=== PATIENT | female | born 1995 | race Caucasian/White ===

== ENCOUNTER 2023-09-16 03:56 | Inpatient (IN) | payer OTHER ==
[2023-09-16] MEDS ORDERED: CARBOPROST TROMETHAMINE 250 MCG/ML 1 ML AMP IM PRN (05:52)
[2023-09-16] MEDS ORDERED: miSOPROStoL 200 MCG TAB PO PRN (05:52)
[2023-09-16] MEDS ORDERED: OXYTOCIN 10 UNIT/ML 1 ML VIAL IM PRN (05:52)
[2023-09-16] MEDS ORDERED: TRANEXAMIC 1,000 MG/100ML-NACL 1,000 MG in EMPTY BAG 1 BAG IV PRN (05:52)
[2023-09-16] MEDS ORDERED: TERBUTALINE 1 MG/ML VIAL SQ PRN (05:52)
[2023-09-16] MEDS ORDERED: LIDOCAINE 0.5% (PF) 5 MG/ML (50 ML SDV) SQ PRN (05:52)
[2023-09-16] MEDS ORDERED: METHYLERGONOVINE 0.2 MG/ML 1 ML AMP IM PRN (05:52)
[2023-09-16] MEDS: LACTATED RINGERS 1,000 ML IV SCH ×2 (06:00→06:47)
[2023-09-16 06:22] LABS: Basophils % (A) 0 %; Eosinophils % (A) 0 %; HCT 35.1 % (34.0-46.0); HGB 11.8 gm/dL (11.4-16.0); Lymphocytes # (A) 1.8 k/uL (1.0-4.8); Lymphocytes % (A) 11 %; MCH 30.3 pg (25.0-35.0); MCHC 33.8 g/dL (31.0-37.0); MCV 89.6 fL (80.0-100.0); Mean Platelet Volume 7.6; Monocytes # (A) 0.7 k/uL (0-1.0); Monocytes % (A) 4 %; Neutrophils # (A) 13.4 k/uL (1.3-7.7); Neutrophils % (A) 84 %; Platelet Count 294 k/uL (150-450); RBC 3.91 m/uL (3.80-5.40); RDW 12.9 % (11.5-15.5)
--- NOTE | 2023-09-16 08:31 | P.HPOB ---
History of Present Illness H&P Date: 09/16/23 Chief Complaint: IUP @ 39 1/7 weeks, active labor 28-year-old at 39 and one sevenths weeks that presents to labor and delivery with complaints of regular painful contractions. Patient states contractions began early this morning and she presented to labor and delivery. Patient was deemed to be in active labor therefore was admitted. Patient is been receiving routine care which has been essentially uncomplicated. Patient denied loss of fluid upon admission. She noted good movement. On bloodwork this patient is a blood type of O-, rubella status nonimmune, surface antigen negative, HIV negative, RPR is nonreactive, group beta strep cultures are negative. Review of Systems Constitutional: Denies chills, Denies fatigue, Denies fever Ears, nose, mouth and throat: Denies headache Cardiovascular: Denies leg edema Respiratory: Denies dyspnea Gastrointestinal: Denies constipation, Denies diarrhea, Denies nausea, Denies vomiting Genitourinary: Reports Past Medical History Past Medical History: No Reported History Additional Past Medical History / Comment(s): seasonal allergies History of Any Multi-Drug Resistant Organisms: None Reported Past Surgical History: No Surgical Hx Reported Past Psychological History: No Psychological Hx Reported Smoking Status: Never smoker Past Alcohol Use History: None Reported Past Drug Use History: None Reported Medications and Allergies Home Medications Medication Instructions Recorded Confirmed Type Vit No.179/Iron/Folic 09/16/23 History [ Tablet] Allergies Allergy/AdvReac Type Severity Reaction Status Date / Time No Known Allergies Allergy Verified 09/16/23 04:00 Exam Osteopathic Statement: *. No significant issues noted on an osteopathic structural exam other than those noted in the History and Physical/Consult. 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 Patient did receive an epidural prior to my arrival. Heart has a regular rate and rhythm, abdomen is gravid, cervical exam she is 9/100/-1 station amniotomy is performed and clear fluid was obtained. heart tones returned be category 1 and she is adin every 2 minutes. Results Result Diagrams: 09/16/23 06:10 Abnormal Lab Results - Last 24 Hours (Table) 09/16/23 Range/Units 06:10 WBC 16.0 H (3.8-10.6) k/uL Neutrophils # 13.4 H (1.3-7.7) k/uL Assessment and Plan (1) Term Current Visit: Yes Status: Acute Code(s): Z34.90 - ENCNTR FOR SUPRVSN OF NORMAL , UNSP, UNSP TRIMESTER SNOMED Code(s): 39697123 (2) Active labor Current Visit: Yes Status: Acute Code(s): TFO5851 - SNOMED Code(s): 951846298 Plan: 28-year-old at 39 and one sevenths weeks presents in active labor. Olivier rivero did receive an epidural prior to my arrival. Anticipate spontaneous vaginal delivery.
[2023-09-16] MEDS ORDERED: BENZOCAINE/MENTHOL SPRAY 1 GM/SPRAY AEROSOL TOPICAL PRN (11:26)
[2023-09-16] MEDS ORDERED: diphenhydrAMINE 25 MG CAP PO PRN (11:26)
[2023-09-16] MEDS ORDERED: diphenhydrAMINE 50 MG CAP PO PRN (11:26)
[2023-09-16] MEDS ORDERED: SIMETHICONE 80 MG CHEWABLE PO PRN (11:26)
[2023-09-16] MEDS ORDERED: LANOLIN CREAM 5 GM TUBE TOPICAL PRN (11:26)
[2023-09-16] MEDS ORDERED: diphenhydrAMINE 50 MG/ML 1 ML VIAL IVP PRN ×2 (11:26)
[2023-09-16] MEDS ORDERED: HYDROCORTISONE 2.5% RECTAL CREAM 30 GM TUBE RECTAL PRN (11:26)
[2023-09-16] MEDS ORDERED: MEASLES-MUMPS-RUBELLA VACC/PF 12,500 UNIT/0.5 ML VIAL SQ ONE (11:26)
[2023-09-16] MEDS ORDERED: ZOLPIDEM 5 MG TAB PO PRN (11:26)
--- NOTE | 2023-09-16 11:31 | P.PROBDLV ---
Vaginal Delivery Note - . Vaginal Delivery Note: This is a 28-year-old 3 para 1011 at 39 and one sevenths weeks that presented to labor and delivery early this morning with complaints of regular painful contractions. Patient was deemed to be in active labor therefore she was admitted to labor and delivery. Patient did request epidural which was placed by the anesthesia Department without difficulty. Patient made good progress toward complete. Patient underwent amniotomy and copious clear fluid was obtained. Patient progressed to complete began pushing. With excellent maternal effort patient had a normal spontaneous vaginal delivery of a viable female infant at 1042, weight of 6 lbs. 11 oz., compound right hand was appreciated. Occiput anterior presentation was noted on delivery. After two- minute delayed the umbilical cord was doubly clamped and cut, and the placenta was delivered spontaneously intact with a three-vessel cord. Uterus is noted be firm and below the umbilicus. On inspection the patient's vaginal vault a midline second-degree laceration with bilateral stellate tears was appreciated. This was repaired in the usual fashion with 3-0 Rapide in a running locked fashion. Areas were instilled with lidocaine prior to closure. Small amount of oozing was noted at the apex of the right stellate tear therefore Surgicel powder was placed along this area for hemostasis. The bladder was drained for partially 200 mL of clear yellow urine after delivery the placenta. After pl acement of Surgicel powder the laceration sites were noted to be hemostatic. All counts were noted be correct 2 at the end of the delivery. Patient and infant tolerated delivery well and are resting comfortably.
[2023-09-16] MEDS: IBUPROFEN 600 MG TAB PO SCH ×2 (13:48→20:49)
[2023-09-16] MEDS: ACETAMINOPHEN TAB 325 MG TAB PO PRN ×2 (18:37→23:23)
[2023-09-16] MEDS: SENNOSIDES-DOCUSATE SODIUM 1 EACH TAB PO SCH (20:49)
[2023-09-16 21:24] VITALS: RESP 16
[2023-09-17 01:29] VITALS: TEMP 97.8
[2023-09-17] MEDS: IBUPROFEN 600 MG TAB PO SCH ×2 (06:36→07:46)
[2023-09-17] MEDS: SENNOSIDES-DOCUSATE SODIUM 1 EACH TAB PO SCH (08:47)
[2023-09-17 08:57] VITALS: BP 99/68; PULSE 71
[2023-09-17] MEDS: ACETAMINOPHEN TAB 325 MG TAB PO PRN (10:03)
--- NOTE | 2023-09-17 10:41 | P.DS ---
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 Patient had been receiving routine care which has been essentially uncomplicated. Patient was admitted to labor and delivery and progressed through labor. Patient did become uncomfortable and requested epidural placement. Epidural was placed without difficulty by the anesthesia department. Patient made progress toward complete amniotomy was performed and clear fluid was obtained. Patient began pushing and with excellent maternal effort had a normal spontaneous vaginal delivery of a viable female at 1042, weight of 6 lbs. 11 oz., Apgars of 9 and 9 at one and 5 minutes respectively. Patient did sustain a second-degree midline laceration with sulcal tears appreciated. This was repaired in usual fashion with 3-0 Rapide. Patient's post course has been uneventful. On this day #1 she is in bleeding and voiding without difficulty. She is tolerating regular diet without nausea or vomiting. She is breast-feeding without difficulty. She states she would like discharge home at 24 hours if possible. Patient Condition at Discharge: Good Plan - Discharge Summary New Discharge Prescriptions: No Action Vit No.179/Iron/Folic [ Tablet] Discharge Medication List Vit No.179/Iron/Folic [ Tablet] 09/16/23 [History] Follow up Appointment(s)/Referral(s): Zoraida Man DO [Doctor of Osteopathic Medicine] - 6 Weeks Patient Instructions/Handouts: Vaginal Delivery (GEN), Vaginal Delivery (DC) Activity/Diet/Wound Care/Special Instructions: No tub baths or intercourse until 6 weeks , [id number] ibuprofen as needed for pain. Patient is to call the office today for routine visit in 6 weeks. Should she have any concerns prior to this appointment she is urged to call the office. Discharge Disposition: HOME SELF-CARE
== END 2023-09-17 11:41 | disposition home or self-care (01) | DRG 807 ==
LOC: FBPOP 03:56 → 4FBP 06:05
PROVIDERS: ADMIT Obstetrics & Gynecology; ATTEND Obstetrics & Gynecology Obstetrics
PROC: 0KQM0ZZ Repair Perineum Muscle, Open Approach (ICD-10-PCS; principal; 2023-09-16)
PROC: 10E0XZZ Delivery of Products of Conception, External Approach (ICD-10-PCS; 2023-09-16)
PROC: 10907ZC Drainage of Amniotic Fluid, Therapeutic from Products of Conception, Via Natural or Artificial Opening (ICD-10-PCS; 2023-09-16)
DX: O32.6XX0 Maternal care for compound presentation, not applicable or unspecified (principal); Z37.0 Single live birth; O70.1 Second degree perineal laceration during delivery; Z3A.39 39 weeks gestation of pregnancy
CPT/HCPCS: 59025; 85025; 86850; 86870; 86880; 86900; 86901; 90471; 90707; 99213

== ENCOUNTER 2025-01-28 06:12 | Inpatient (IN) | payer MEDICAID, OTHER ==
[2025-01-28] MEDS ORDERED: miSOPROStoL 200 MCG TAB RECTAL PRN (06:39)
[2025-01-28] MEDS ORDERED: TERBUTALINE 1 MG/ML VIAL SQ PRN (06:39)
[2025-01-28] MEDS ORDERED: TRANEXAMIC 1,000 MG/100ML-NACL 1,000 MG in EMPTY BAG 1 BAG IV PRN (06:39)
[2025-01-28] MEDS ORDERED: OXYTOCIN 10 UNIT/ML 1 ML VIAL IM PRN (06:39)
[2025-01-28] MEDS ORDERED: METHYLERGONOVINE 0.2 MG/ML 1 ML AMP IM PRN (06:39)
[2025-01-28] MEDS ORDERED: miSOPROStoL 200 MCG TAB PO PRN (06:39)
[2025-01-28] MEDS ORDERED: CARBOPROST TROMETHAMINE 250 MCG/ML 1 ML AMP IM PRN (06:39)
[2025-01-28] MEDS: LACTATED RINGERS 1,000 ML IV SCH (06:53)
[2025-01-28 07:01] LABS: Basophils # (A) 0.03 10*3/uL (0.00-0.10); Basophils % (A) 0.3 %; Eosinophils # (A) 0.06 10*3/uL (0.04-0.35); Eosinophils % (A) 0.5 %; HCT 35.8 % (37.2-46.3); HGB 11.4 g/dL (12.0-15.0); Lymphocytes # (A) 2.24 10*3/uL (0.90-5.00); Lymphocytes % (A) 20.1 %; MCH 29.1 pg (27.0-32.0); MCHC 31.8 g/dL (32.0-37.0); MCV 91.3 fL (80.0-97.0); Mean Platelet Volume 9.7 fL (9.5-12.2); Monocytes # (A) 0.88 10*3/uL (0.20-1.00); Monocytes % (A) 7.9 %; Neutrophils # (A) 7.86 10*3/uL (1.80-7.70); Neutrophils % (A) 70.5 %; Platelet Count 252 10*3/uL (140-440); RBC 3.92 10*6/uL (4.10-5.20); RDW 13.2 % (11.5-14.5); WBC 11.15 10*3/uL (4.50-10.00)
[2025-01-28] MEDS: OXYTOCIN 30 UNITS/500 ML NS 30 UNIT in SALINE 1 500ML.BAG IV SCH (07:30)
[2025-01-28 07:59] VITALS: RESP 16
[2025-01-28] MEDS ORDERED: fentaNYL (PF) 50 MCG/ML 5 ML AMP ONE (11:07)
[2025-01-28] MEDS ORDERED: SODIUM CHLORIDE 0.9% 250 ML BAG ONE (11:07)
[2025-01-28] MEDS ORDERED: ROPIVACAINE 5 MG/ML 30 ML VIAL ONE (11:07)
[2025-01-28] MEDS: LIDOCAINE 0.5% (PF) 5 MG/ML (50 ML SDV) SQ PRN (15:29)
[2025-01-28] MEDS ORDERED: diphenhydrAMINE 50 MG/ML 1 ML VIAL IVP PRN ×2 (15:48)
[2025-01-28] MEDS ORDERED: diphenhydrAMINE 25 MG CAP PO PRN (15:48)
[2025-01-28] MEDS ORDERED: LANOLIN CREAM 1 GM TUBE TOPICAL PRN (15:48)
[2025-01-28] MEDS ORDERED: diphenhydrAMINE 50 MG CAP PO PRN (15:48)
[2025-01-28] MEDS ORDERED: HYDROCORTISONE 2.5% RECTAL CREAM 30 GM TUBE RECTAL PRN (15:48)
[2025-01-28] MEDS ORDERED: ZOLPIDEM 5 MG TAB PO PRN (15:48)
[2025-01-28] MEDS ORDERED: SIMETHICONE 80 MG CHEWABLE PO PRN (15:48)
[2025-01-28] MEDS ORDERED: BENZOCAINE/MENTHOL SPRAY 1 GM/SPRAY AEROSOL TOPICAL PRN (15:48)
--- NOTE | 2025-01-28 16:45 | P.HPOB ---
History of Present Illness H&P Date: 01/28/25 Chief Complaint: IUP at 39-0/7 weeks, SGA This is a 29-year-old 4 para 2-0-1-2 that presents to labor and delivery for medical induction of labor secondary to SGA. Patient been receiving routine care which, was complicated by a diagnosis of small for gestational age. Patient has noted good movement and has had normal testing. Patient notes good movement denies vaginal bleeding or loss of fluid. On blood work this patient is a blood type of O-, rubella status immune, hepatitis B surface engine negative, HIV negative, RPR is nonreactive, hepatitis C nonreactive, grew beta strep culture is negative. Review of Systems Constitutional: Denies chills, Denies fatigue, Denies fever Ears, nose, mouth and throat: Denies headache Cardiovascular: Denies leg edema Respiratory: Denies dyspnea Gastrointestinal: Denies nausea, Denies vomiting Genitourinary: Reports Past Medical History Past Medical History: No Reported History Additional Past Medical History / Comment(s): seasonal allergies History of Any Multi-Drug Resistant Organisms: None Reported Past Surgical History: No Surgical Hx Reported Past Psychological History: No Psychological Hx Reported Smoking Status: Never smoker Past Alcohol Use History: None Reported Past Drug Use History: None Reported - Past Family History Mother Family Medical History: No Reported History Medications and Allergies Home Medications Medication Instructions Recorded Confirmed Type Vit No.179/Iron/Folic 1 tab PO DAILY 09/16/23 01/28/25 History [ Tablet] Allergies Allergy/AdvReac Type Severity Reaction Status Date / Time No Known Allergies Allergy Verified 09/16/23 04:00 Exam Osteopathic Statement: *. No significant issues noted on an osteopathic structural exam other than those noted in the History and Physical/Consult. Vital Signs Temp Pulse Resp BP Pulse Ox 01/28/25 16:08 76 16 101/62 01/28/25 15:45 87 16 110/56 01/28/25 15:30 93 16 99/64 01/28/25 15:15 81 16 103/66 01/28/25 15:00 88 16 98/65 01/28/25 14:45 97.9 F 84 16 97/65 100 01/28/25 07:05 97.5 F L 72 16 107/73 Intake and Output 0401/28/25 01/28/25 06:59 14:59 22:59 Output Total 600 Balance -600 Output: Urine 400 Straight 400 Output, Quantitative 200 Blood Loss Other: Weight 62.596 kg 62.596 kg Targeted physical exam is performed this date in general is a well-nourished well-developed female in no acute distress, breathing is nonlabored, heart has a regular rate and rhythm, abdomen is gravid, heart tones are noted to be category 1 and she is adin irregularly. On cervical exam she is 2/50/-3 station vertex presentation, amniotomy is performed and clear fluid was obtained. Results Result Diagrams: 01/28/25 06:50 Abnormal Lab Results - Last 24 Hours (Table) 01/28/25 Range/Units 06:50 WBC 11.15 H (4.50-10.00) 10*3/uL RBC 3.92 L (4.10-5.20) 10*6/uL Hgb 11.4 L (12.0-15.0) g/dL Hct 35.8 L (37.2-46.3) % MCHC 31.8 L (32.0-37.0) g/dL Immature Gran # 0.08 H (0.00-0.04) 10*3/uL Neutrophils # 7.86 H (1.80-7.70) 10*3/uL Assessment and Plan (1) SGA (small for gestational age), , affecting care of mother, antepartum Current Visit: Yes Status: Acute Code(s): O36.5990 - MATERN CARE FOR OTH OR SUSP POOR FETL GRTH, UNSP TRI, UNSP SNOMED Code(s): 699447385 (2) Term Current Visit: No Status: Acute Code(s): Z34.90 - ENCNTR FOR SUPRVSN OF NORMAL , UNSP, UNSP TRIMESTER SNOMED Code(s): 10646809 Plan: Admit to labor and delivery Pitocin induction of labor Epidural when appropriate Clear liquids as tolerated Anticipate spontaneous vaginal delivery
--- NOTE | 2025-01-28 16:49 | P.PROBDLV ---
Vaginal Delivery Note - . Vaginal Delivery Note: Date of service: 01/28/2025 Findings: viable female infant at 1429, vacuum assist, weight of 6 pound 0.5 ounces 29-year-old -0-1-2 at 30-0/7 weeks that presents to labor and delivery for induction of labor. Patient is admitted and Pitocin induction of labor is b egun. Patient underwent amniotomy clear fluid was obtained. Patient progressed in labor becoming uncomfortable and requesting epidural. Epidural was placed without difficulty by the anesthesia department. Patient made progress toward complete dilation. Once completely dilated patient began pushing. bradycardia was noted therefore a vacuum was placed after informed consent was obtained and the was delivered without to push no pop offs were appreciated and the vacuum was only used during the contraction. A viable female infant was delivered in occiput posterior presentation at 1429, weight of 6 pounds 0.5 ounces, umbilical cord was doubly clamped and cut. was handed off to waiting RN given vacuum assist delivery. Placenta was delivered spontaneously intact with a three-vessel cord being noted. On inspection the patient's vaginal vault secondary midline laceration is appreciated, this is injected with lidocaine and repaired in the usual fashion with 3-0 Rapide. Uterus is noted be firm and below the umbilicus All counts were correct x 2 at the end of delivery. Patient and infant tolerated delivery well and are resting comfortably
[2025-01-28] MEDS: ACETAMINOPHEN TAB 325 MG TAB PO PRN (17:49)
[2025-01-28] MEDS: Rhogam IMMUNE GLOBULIN 1,500 UNIT/1 ML IM ONE (19:08)
[2025-01-28] MEDS: SENNOSIDES-DOCUSATE SODIUM 1 EACH TAB PO SCH (20:14)
[2025-01-29] MEDS: IBUPROFEN 800 MG TAB PO PRN (00:29)
[2025-01-29 07:33] LABS: Basophils # (A) 0.03 10*3/uL (0.00-0.10); Basophils % (A) 0.3 %; Eosinophils # (A) 0.09 10*3/uL (0.04-0.35); Eosinophils % (A) 0.8 %; HCT 27.7 % (37.2-46.3); Lymphocytes # (A) 2.02 10*3/uL (0.90-5.00); Lymphocytes % (A) 17.2 %; MCH 29.5 pg (27.0-32.0); MCHC 32.1 g/dL (32.0-37.0); MCV 91.7 fL (80.0-97.0); Mean Platelet Volume 9.9 fL (9.5-12.2); Monocytes # (A) 0.88 10*3/uL (0.20-1.00); Monocytes % (A) 7.5 %; Neutrophils # (A) 8.64 10*3/uL (1.80-7.70); Neutrophils % (A) 73.4 %; Platelet Count 196 10*3/uL (140-440); RBC 3.02 10*6/uL (4.10-5.20); RDW 13.3 % (11.5-14.5); WBC 11.75 10*3/uL (4.50-10.00)
[2025-01-29 07:43] LABS: HGB 8.9 g/dL (12.0-15.0)
[2025-01-29 09:00] VITALS: BP 105/65; PULSE 69; TEMP 98.1
--- NOTE | 2025-01-29 12:08 | P.DS ---
Providers Date of admission: 01/28/25 06:12 Expected date of discharge: 01/29/25 Attending physician: Zoraida Man Primary care physician: Stated None - Discharge Diagnosis(es) (1) SGA (small for gestational age), , affecting care of mother, antepartum Current Visit: Yes Status: Acute (2) Term Current Visit: No Status: Acute (3) Status post vacuum-assisted vaginal delivery Current Visit: Yes Status: Acute (4) Obstetric vaginal laceration with second degree perineal laceration Current Visit: No Status: Acute Hospital Course: 29-year-old G4 now para 3-0-1-3 that presented to labor and delivery for medical induction of labor secondary to small for gestational age. Patient had been receiving routine care which had been complicated by diagnosis for SGA. For full details in this patient please see the dictated history and physical. Patient was admitted to labor and delivery and Pitocin induction of labor was begun. Amniotomy was performed and clear fluid was obtained. Patient made good progress to labor eventually coming uncomfortable and requesting epidural. Epidural was placed without difficulty by the anesthesia department. Patient made good progress toward complete dilation. Once completely dilated patient began pushing. bradycardia was noted and informed consent was obtained regarding vacuum-assisted vaginal delivery. With 1 pull of the vacuum infant was delivered in occiput posterior presentation. Vacuum placement along with suction was confirmed prior to use. Patient did sustain a second-degree midline laceration during delivery. This was repaired in the usual fashion with 3-0 Rapide. Patient delivered a viable female infant at 1429 via vacuum assist, weight of 6 pounds 0.5 ounces. Patient did well . On this day #1 she is ambulating and voiding without difficulty. She is tolerating a regular diet without nausea or vomiting. She is her pain is well-controlled. She would like discharge home. Patient Condition at Discharge: Good Plan - Discharge Summary New Discharge Prescriptions: No Action Vit No.179/Iron/Folic [ Tablet] 1 tab PO DAILY Discharge Medication List Vit No.179/Iron/Folic [ Tablet] 1 tab PO DAILY 09/16/23 [History] Follow up Appointment(s)/Referral(s): Zoraida Man DO [Doctor of Osteopathic Medicine] - 03/12/25 2:00 pm Patient Instructions/Handouts: Vaginal Delivery (DC), Vaginal Delivery (GEN) Activity/Diet/Wound Care/Special Instructions: [id number] ibuprofen 6 or milligrams or 3 tablets every 6 hours as needed for pain. No tub baths or intercourse until 6 weeks . Routine check at 6 weeks, should she have any concerns prior to this appointment she is urged to call the office and be seen prior. Discharge Disposition: HOME SELF-CARE
== END 2025-01-29 16:03 | disposition home or self-care (01) | DRG 560 ==
LOC: 4FBP 06:12
PROVIDERS: ADMIT Obstetrics & Gynecology Obstetrics; ATTEND Obstetrics & Gynecology Obstetrics
PROC: 3E033VJ Introduction of Other Hormone into Peripheral Vein, Percutaneous Approach (ICD-10-PCS; principal; 2025-01-28)
PROC: 0KQM0ZZ Repair Perineum Muscle, Open Approach (ICD-10-PCS; principal; 2025-01-28)
PROC: 3E0234Z Introduction of Serum, Toxoid and Vaccine into Muscle, Percutaneous Approach (ICD-10-PCS; principal; 2025-01-28)
PROC: 10D07Z6 Extraction of Products of Conception, Vacuum, Via Natural or Artificial Opening (ICD-10-PCS; principal; 2025-01-28)
PROC: 10907ZC Drainage of Amniotic Fluid, Therapeutic from Products of Conception, Via Natural or Artificial Opening (ICD-10-PCS; principal; 2025-01-28)
DX: O36.5930 Maternal care for other known or suspected poor fetal growth, third trimester, not applicable or unspecified (principal); O26.893 Other specified pregnancy related conditions, third trimester; O32.8XX0 Maternal care for other malpresentation of fetus, not applicable or unspecified; Z67.41 Type O blood, Rh negative; O76 Abnormality in fetal heart rate and rhythm complicating labor and delivery; O70.1 Second degree perineal laceration during delivery; Z3A.39 39 weeks gestation of pregnancy; Z37.0 Single live birth
CPT/HCPCS: 85025; 85461; 86850; 86900; 86901